=== PATIENT | male | born 1950 | race Caucasian/White ===

== ENCOUNTER 2018-04-14 05:48 | Day surgery (SDC) | payer OTHER ==
--- OUTSIDE RECORDS SUMMARY | 2018-04-14 05:50 | XMS REPORT | Clinical Summary ---
:1950 Author Organization [facility] Address [address] [place] [address] Care Team Providers Name Role Phone Keyshawn Hayes MD Primary Care Provider Allergies Active Allergy Reactions Severity Noted Date Comments Hydrocodone Anxiety, Hives, Itching, High 11/01/2016 Rash, Shortness Of Breath Sulfa (Sulfonamide Anxiety, GI Bleeding, Low 11/01/2016 Antibiotics) Itching, Other (See Comments), Rash Sumatriptan Succinate Shortness Of Breath High 11/01/2016 Current Medications Prescription Sig. Disp. Refills Start Date End Date Status fenofibrate (TRICOR) 145 Take 145 mg by Active MG tablet mouth daily. atorvastatin (LIPITOR) 40 Take 40 mg by mouth Active MG tablet daily. gabapentin (NEURONTIN) Take 800 mg by Active 800 MG tablet mouth 3 (three) times a day. losartan (COZAAR) 100 MG Take 100 mg by Active tablet mouth nightly. promethazine (PHENERGAN) Take 25 mg by mouth Active 25 MG tablet every 6 (six) hours as needed for nausea or vomiting. tiZANidine (ZANAFLEX) 4 Take 4 mg by mouth Active MG tablet 3 (three) times a day. QUEtiapine (SEROquel) 200 Take 200 mg by Active MG tablet mouth nightly. zolpidem (AMBIEN) 10 mg Take 10 mg by mouth Active tablet nightly as needed for sleep. morPHINE (MSIR) 30 MG Take 30 mg by mouth Active tablet 3 (three) times a day. omeprazole (PriLOSEC) 40 Take 40 mg by mouth Active MG capsule daily. cetirizine-pseudoepHEDrin Take 1 tablet by Active e (ZyrTEC-D) 5-120 mg per mouth 2 (two) times 12 hr tablet a day. BUDESONIDE/FORMOTEROL Inhale 2 puffs 2 Active FUMARATE (SYMBICORT INHL) (two) times a day as needed. Active Problems Problem Noted Date Spinal stenosis 12/21/2016 Chronic hepatitis C without hepatic coma 09/21/2016 Abnormal liver function 09/21/2016 Hepatic fibrosis 09/21/2016 Mixed hyperlipidemia 09/21/2016 Chronic bilateral low back pain without sciatica 09/21/2016 Family History Medical History Relation Name Comments Cancer Mother Cheri lymphoma Relation Name Status Comments Mother Cheri Social History Tobacco Use Types Packs/Day Years Used Date Current Every Day Smoker Cigarettes 0.5 50 Started: 09/25/1969 Smokeless Tobacco: Never Used Alcohol Use Drinks/Week oz/Week Comments Yes 1-2 Cans of beer strictly social and even then not often Sex Assigned at Date Recorded Not on file Last Filed Vital Signs Not on file Plan of Treatment Health Maintenance Due Date Last Done Comments COLON CANCER SCREENING 2001 SHINGRIX VACCINE (#1) 2001 ZOSTER VACCINE 2011 PNEUMOCOCCAL POLYSACCHARIDE VACCINE AGE 65 AND OVER 2016 PNEUMOCOCCAL-13 2016 INFLUENZA VACCINE 06/25/2018 Implants Implanted Type Area Basket Grader Device Expiration Model / Serial / Identifier Date Lot Sunitha Dbm Dbx 5cc - [id number] - [id number] Human N/A: MUSCULOSKELETAL 08/24/2018 [id number] / Implanted: Qty: 1 on 12/21/2016 by Manav Bee MD Tissue N/A TRANSPLANT [id number] / Implants FOUNDATION [id number] Nufix 5.0 Mm Dow - [id number] - [id number] Spinal N/A: NUTECH 2020 [id number] / Implanted: Qty: 1 on 12/21/2016 by Manav Bee MD Implants Spine [id number] / Lumbar [id number] Nufix 5.0 Mm Dow - [id number] - [id number] Spinal N/A: NUTECH 2020 [id number] / Implanted: Qty: 1 on 12/21/2016 by Manav Bee MD Implants N/A [id number] / [id number] Results Not on fileafter 04/13/2017 Insurance Payer Benefit Plan / Group Subscriber ID Type Phone Address [facility] xxxxxxxxx HMO
[2018-04-14] MEDS ORDERED: NA CHLORIDE 0.9% 500 ML ONE (06:12)
[2018-04-14 06:33] LABS: Absolute Lymphocytes (CBC) 4.7 K/uL (0.7-4.9); Absolute Neutrophil 5.5 K/uL (1.8-8.0); Basophils % 1.2 % (0-1.3); Eosinophils % 1.3 % (0-4.4); Hematocrit 39.8 % (39.6-49.0); Lymphocytes % 40.9 % (15.3-44.8); MCH 30.1 pg (27.0-35.0); MCV 94.1 fL (80-100); Monocytes % 8.5 % (3.3-12.3); RBC Red Blood Cell Count 4.23 M/uL (4.33-5.43)
[2018-04-14 06:36] LABS: Protime INR 0.95
[2018-04-14 06:39] LABS: Potassium 3.9 mEq/L (3.6-5.0)
[2018-04-14] MEDS ORDERED: LIDOCAINE 1% 20 ML MDV ONE ×2 (07:15→09:35)
[2018-04-14] MEDS ORDERED: HEPA 1000U/500MLS 2,000 UNIT/1,000 ML BAG IV ONE ×2 (07:15→09:35)
[2018-04-14] MEDS ORDERED: HEPARIN 5000 UNIT/ML 1 ML VIAL ONE (07:23)
[2018-04-14] MEDS ORDERED: MIDAZOLAM HCL 2 MG/2 ML INJ ONE (07:23)
[2018-04-14] MEDS ORDERED: NICARDIPINE HCL 25 MG/10 ML IV ONE (07:24)
[2018-04-14] MEDS ORDERED: NITROGLYCERIN/D5W 25 MG/250 ML BTL IV ONE (07:24)
[2018-04-14] MEDS ORDERED: FENTANYL CITR 100 MCG/2 ML ONE (07:24)
[2018-04-14] MEDS ORDERED: NITROGLYCERIN 100 MCG/ML SYR (for cath lab use only) IV ONE (07:24)
[2018-04-14] MEDS ORDERED: NA CHLORIDE 0.9% 0 ML ONE (07:39)
[2018-04-14] MEDS ORDERED: ATROPINE SULF 1 MG/10 ML SYR IV ONE (07:39)
--- NOTE | 2018-04-14 18:52 | OP ---
Surgeon: Amador Dawson MD Procedures: Left heart catheterization, coronary left ventricular angiography. Findings: The patient has severe left main and three-vessel disease. The left main is only 40%, but there is 99% stenosis in the RCA right around the area of very severe ectasia. There is an ostial R CA stenosis of 50%, left main stenosis 40%, mid LAD stenosis 99%, 50% stenosis in the distal branch o f the circ, probably a non-bypassable vessel. The ramus and large OM before that stenosis are free o f any significant disease, although the left main is an issue. Left ventricular ejection fraction is normal, and our recommendation is for him to have bypass surgery to OM, LAD, and right coronary. Procedure In Detail: The patient had typical symptoms of angina, abnormal Cardiolite, brought to the cardiac cardiovascular lab director in a fasting state, gave informed consent, prepared and draped in the usual sterile fashion. Right radial artery was used. The tissues over the artery were anesthetized with 1% lidoc abdias. The artery was entered using a 21-gauge needle. The artery was cannulated with a 0.021 inch d iameter guidewire. Using modified Seldinger technique, a 6-Bhutanese Terumo radial sheath was placed. Sheath was flushed and radial cocktail was given consisting of nicardipine, heparin, and nitroglyceri n. We used a TIG catheter, guided it to the ascending aorta using a Terumo Glidewire with a short ra dius J-tip. This gave inadequate pictures of the right coronary, so we switched to a Floyd catheter. The Floyd catheter was used to angiogram the right coronary, left ventricle, the TIG catheter for t he left coronary. At the end of the procedure, the catheter was removed over the J-wire. The sheath was flushed, removed. Arteriotomy closed with a TR band. Complications from the procedure were none. MARIZA/EDEN Voice ID: [id number] Report ID: [id number]
== END 2018-04-14 11:10 | disposition home or self-care (01) ==
LOC: CCL 05:48
PROVIDERS: ATTEND Internal Medicine
DX: I25.118 Atherosclerotic heart disease of native coronary artery with other forms of angina pectoris (principal); I10 Essential (primary) hypertension; E78.2 Mixed hyperlipidemia; E11.9 Type 2 diabetes mellitus without complications; Z88.2 Allergy status to sulfonamides; Z88.6 Allergy status to analgesic agent
CPT/HCPCS: 36415; 80048; 85025; 85610; 85730; 93458; C1893; J1644; J2250; J3010; J0583